=== PATIENT | male | born 1980 | race Caucasian/White ===

== ENCOUNTER 2018-07-23 11:18 | Emergency (ER) | payer OTHER, SELFPAY ==
[2018-07-23 11:19] VITALS: BP 123/71; PULSE 72; RESP 16; TEMP 36.2; O2SAT 98; BMI 32.5
--- NOTE | 2018-07-23 11:50 | ED.VISSUMM ---
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 Patient had a knee scope 3-4 months ago. For meniscal tear. Today he was on a long margin with a heavy backpack. During the November she developed right knee pain worse with flexing extending the knee. He denies any fall or trauma. No fever or redness. Physical Examination: Appearing male. Vital signs are stable afebrile. HEENT exam unremarkable. Neck nontender. Lungs clear to auscultation bilaterally. Heart regular rhythm no murmur. Abdomen soft nontender. Patient is moving all 4 extremities. They are neurovascularly intact. 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 Normal range of motion. Specifically the right knee is nonswollen. No significant tenderness. No redness or warmth. No signs of septic joint. No effusion. He has full flexion-extension of the right knee. The ACL, PCL, MCL, LCL are all intact. There is no specific medial joint line tenderness. Test Results: None Emergency Department Course and Treatment: Patient has knee pain which may or may not be secondary to prior meniscal injury. Motrin and ice. Rest. Follow-up with his orthopedic surgeon in [facility]. Treatment Plan: Ice and elevate. Motrin for pain and inflammation. Rest. Disposition: Discharge Impression: Right knee pain uncertain etiology History of prior knee scope for meniscal tear This note was generated with [employer] dictation software. It may contain incorrect words, spelling, and punctuation that were not noted in review of the chart prior to signing ED Disposition - Plan for ED Patient: Chief Complaint: Lower Extremity Injury Referrals: [facility],Out of [Primary Care Provider] -
--- NOTE | 2018-07-23 11:53 | ED.DCSUM_ITS ---
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 Patient had a knee scope 3-4 months ago. For meniscal tear. Today he was on a long margin with a heavy backpack. During the November she developed right knee pain worse with flexing extending the knee. He denies any fall or trauma. No fever or redness. Physical Examination: Appearing male. Vital signs are stable afebrile. HEENT exam unremarkable. Neck nontender. Lungs clear to auscultation bilaterally. Heart regular rhythm no murmur. Abdomen soft nontender. Patient is moving all 4 extremities. They are neurovascularly intact. 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 Normal range of motion. Specifically the right knee is nonswollen. No significant tenderness. No redness or warmth. No signs of septic joint. No effusion. He has full flexion-extension of the right knee. The ACL, PCL, MCL, LCL are all intact. There is no specific medial joint line tenderness. Test Results: None Emergency Department Course and Treatment: Patient has knee pain which may or may not be secondary to prior meniscal injury. Motrin and ice. Rest. Follow- up with his orthopedic surgeon in [facility]. Treatment Plan: Ice and elevate. Motrin for pain and inflammation. Rest. Disposition: Discharge Impression: Right knee pain uncertain etiology History of prior knee scope for meniscal tear This note was generated with [employer] dictation software. It may contain incorrect words, spelling, and punctuation that were not noted in review of the chart prior to signing ED Disposition - Plan for ED Patient: Chief Complaint: Lower Extremity Injury Referrals: [facility] Doctor,Out of [Primary Care Provider] -
--- NOTE | 2018-07-23 11:53 | ED.DEP ---
ED Disposition - Plan for ED Patient: Disposition: Home or Assisted Living Chief Complaint: Lower Extremity Injury Instructions: ED Knee Pain [facility] Referrals: [facility],Out of [Primary Care Provider] - As soon as possible Additional Instructions: Ice to your right knee. Rest. No marching until follow-up with your orthopedic surgeon. Motrin for pain and inflammation. Call and follow-up with your orthopedic surgeon in [place], [place]
== END 2018-07-23 12:02 | disposition home or self-care (01) ==
PROVIDERS: Emergency Provider Emergency Medicine
DX: M25.561 Pain in right knee (principal)
CPT/HCPCS: 99282